=== PATIENT | female | born 1950 | race Caucasian/White ===

== ENCOUNTER 2021-04-24 07:03 | Day surgery (SDC) | payer MEDICARE, OTHER ==
[~2021-04-24 07:03] MED LIST: Acetaminophen 325 MG Tab PO SCH; Lactated Ringers 1,000 ML IV SCH; Lidocaine 1%/Sod Bicarbonate in NS 8.4% 1 ML Syringe IDERM PRN; Midazolam 1 MG/ML 2 ML SDV ONE; Pregabalin 25 MG Cap PO SCH; Propofol 200 MG/20 ML SDV ONE; Sodium Chloride 0.9% 10 ML Syringe FLUSH PRN; ceFAZolin 1 GM Vial ONE; fentaNYL 100 MCG/2 ML SDV ONE; oxyCODONE ER 10 MG TAB.ER PO SCH
[2021-04-24] MEDS ORDERED: Ropivacaine 0.5% 5 MG/ML 30 ML SDV ONE (07:10)
[2021-04-24] MEDS ORDERED: EPINEPHrine 1 MG/ML SDV ONE (07:10)
--- NOTE | 2021-04-24 07:18 | PCM.PREANE ---
Preanesthetic Assessment - Procedure Proposed Procedure: left total knee replacement - Anesthesia/Transfusion/Family Hx Anesthesia History: Prior Anesthesia Without Reaction Family History of Anesthesia Reaction: No Transfusion History: Prior Transfusion Without Reaction - Review of Systems General: No Symptoms Pulmonary: No Symptoms Cardiovascular: No Symptoms Gastrointestinal: No Symptoms Neurological: No Symptoms Other: Reports: Depression, Anxiety - Physical Assessment NPO Status Date: 04/23/21 NPO Status Time: 23:00 Vital Signs: 136/76 79 95% 97.6 16 Height: 5 ft 5 in Weight: 100 kg ASA Class: 2 Mental Status: Alert & Oriented x3 Airway Class: Mallampati = 2 Dentition: Reports: Normal Dentition, Galt(s) (caps) Thyro-Mental Finger Breadths: 3 Mouth Opening Finger Breadths: 3 ROM/Head Extension: Full Lungs: Clear to Auscultation, Normal Respiratory Effort Cardiovascular: Regular Rate, Regular Rhythm - Allergies Allergies/Adverse Reactions: Allergies Allergy/AdvReac Type Severity Reaction Status Date / Time kiwi Allergy Cannot Verified 04/21/21 10:41 Remember lisinopril AdvReac Cough Verified 04/21/21 10:50 - Blood Blood Available: No - Acknowledgements Anesthesia Type Planned: Spinal Pt an Appropriate Candidate for the Planned Anesthesia: Yes Alternatives and Risks of Anesthesia Discussed w Pt/Guardian: Yes Pt/Guardian Understands and Agrees with Anesthesia Plan: Yes PreAnesthesia Questionnaire HEENT History: Reports: Impaired Vision, Sinusitis Cardiovascular History: Reports: High Cholesterol, Hypertension Respiratory History: Reports: Other (See Below) Other Respiratory History: bronchitis, wheezing Gastrointestinal History: Reports: GERD Genitourinary History: Reports: None [employer]STRU[employer] DIRECTOR History: Reports: None Musculoskeletal History: Reports: Arthritis, Osteoporosis Neurological History: Reports: None Psychiatric History: Reports: Depression, Panic Attack Endocrine/Metabolic History: Reports: Obesity/BMI 30+ Hematologic History: Reports: None Immunologic History: Reports: None Oncologic (Cancer) History: Reports: None Dermatologic History: Reports: None - Past Surgical History Head Surgeries/Procedures: Reports: None HEENT Surgical History: Reports: Cataract Surgery Cardiovascular Surgical History: Reports: None Respiratory Surgical History: Reports: None GI Surgical History: Reports: Appendectomy, Cholecystectomy, Colonoscopy Female Surgical History: Reports: Hysterectomy, Tubal Ligation Male Surgical History: Reports: None Endocrine Surgical History: Reports: None Neurological Surgical History: Reports: None Musculoskeletal Surgical History: Reports: None Oncologic Surgical History: Reports: None Dermatological Surgical History: Reports: None - SUBSTANCE USE Tobacco Use Status *Q: Former Tobacco User (1987) Tobacco Use Within Last Twelve Months: No Second Hand Smoke Exposure: No Days Per Week of Alcohol Use: 0 Recreational Drug Use History: No - HOME MEDS Home Medications: Home Meds Alendronate Sodium [Fosamax] 70 mg PO Q7D 04/21/21 [History] Amoxicillin 2,000 mg PO ASDIRECTED PRN 04/21/21 [History] Calcium Carbonate [Tums] 300 - 600 mg PO DAILY 04/21/21 [History] Cholecalciferol (Vitamin D3) [Vitamin D3] 5,000 unit PO DAILY 04/21/21 [History] Fish Oil/[place]-3 Fatty Acids [Fish Oil 1,000 MG] 2 gm PO DAILY 04/21/21 [History] Fluticasone Propionate [Flonase] 1 dose NASBOTH DAILY 04/21/21 [History] Losartan [Cozaar] 50 mg PO DAILY 04/21/21 [History] Melatonin 3 mg PO DAILY PRN 04/21/21 [History] Omeprazole Magnesium [Prilosec Otc] 20 mg PO DAILY 04/21/21 [History] Sertraline [Zoloft] 50 mg PO QAM 04/21/21 [History] Simvastatin [Zocor] 10 mg PO BEDTIME 04/21/21 [History] guaiFENesin [Mucinex] 1,200 mg PO BID PRN 04/21/21 [History] Aspirin [Aspirin EC] 325 mg PO BID #60 tab 04/24/21 [Rx] oxyCODONE 5 - 10 mg PO Q4H PRN #40 tab 04/24/21 [Rx] - CURRENT (IN HOUSE) MEDS Current Meds: Current Medications Acetaminophen (Acetaminophen 325 Mg Tab) 975 mg PO ONETIME JEZ Stop: 04/24/21 16:00 Last Admin: 04/24/21 07:10 Dose: 975 mg Documented by: Morphine Sulfate 8 mg/Epinephrine HCl 0.3 mg/Cefuroxime Sodium 750 mg/Ketorolac Tromethamine 30 mg/Sodium Chloride 7.9 ml 0 mg .XX ASDIRECTED PRN PRN Reason: Pain Stop: 04/24/21 16:00 Lactated Ringer's (Ringers, Lactated) 1,000 mls @ 125 mls/hr IV ASDIRECTED JEZ Stop: 04/24/21 23:00 Lidocaine/Sodium Bicarbonate (Lidocaine 1%/Sod Bicarbonate In Ns 8.4% 1 Ml Syringe) 0.25 ml IDERM ONETIME PRN PRN Reason: Prior to IV Start Stop: 04/24/21 18:00 Oxycodone HCl (Oxycodone Er 10 Mg Tab.Er) 10 mg PO ONETIME JEZ Stop: 04/24/21 16:00 Last Admin: 04/24/21 07:10 Dose: 10 mg Documented by: Pregabalin (Pregabalin 25 Mg Cap) 50 mg PO ONETIME JEZ Stop: 04/24/21 16:00 Last Admin: 04/24/21 07:09 Dose: 50 mg Documented by: Sodium Chloride (Sodium Chloride 0.9% 10 Ml Syringe) 10 ml FLUSH ASDIRECTED PRN PRN Reason: Keep Vein Open Stop: 04/24/21 18:00 Discontinued Medications Cefazolin Sodium (Cefazolin 1 Gm Vial) Confirm Administered Dose 2 gm .ROUTE .STK-MED ONE Stop: 04/24/21 07:01 Fentanyl (Fentanyl 100 Mcg/2 Ml Sdv) Confirm Administered Dose 100 mcg .ROUTE .STK-MED ONE Stop: 04/24/21 07:01 Midazolam HCl (Midazolam 1 Mg/Ml 2 Ml Sdv) Confirm Administered Dose 2 mg .ROUTE .STK-MED ONE Stop: 04/24/21 07:01 Propofol (Propofol 200 Mg/20 Ml Sdv) Confirm Administered Dose 400 mg .ROUTE .STK-MED ONE Stop: 04/24/21 07:01
[2021-04-24] MEDS ORDERED: Lactated Ringers 1,000 ML ONE ×2 (08:28→09:45)
[2021-04-24] MEDS ORDERED: Ondansetron 4 MG/2 ML SDV IVPUSH PRN (08:45)
[2021-04-24] MEDS ORDERED: fentaNYL 100 MCG/2 ML SDV IVPUSH PRN (08:45)
[2021-04-24] MEDS ORDERED: HYDROmorphone 0.5 MG/0.5 ML Syringe IVPUSH PRN (08:45)
[2021-04-24] MEDS ORDERED: ePHEDrine 50 MG/ML SDV ONE (08:48)
[2021-04-24] MEDS: Morphine 8 MG, EPINEPHrine 0.3 MG, Cefuroxime 750 MG, Ketorolac 30 MG, Sodium Chloride ... PRN ×10 (09:29→09:47)
[2021-04-24] MEDS: Vancomycin 1 GM SDV ONE ×2 (09:30→09:53)
--- NOTE | 2021-04-24 10:22 | PCM.POSTAN ---
POST ANESTHESIA ASSESSMENT - MENTAL STATUS Mental Status: Alert, Oriented - VITAL SIGNS Vital Signs: Last Vital Signs Temp 97.9 F 04/24/21 10:14 Pulse 80 04/24/21 10:14 Resp 14 04/24/21 10:14 BP 116/68 04/24/21 10:14 Pulse Ox 94 L 04/24/21 10:14 - RESPIRATORY Respiratory Status: Respiratory Rate WNL, Airway Patent, O2 Saturation Stable, Supplemental Oxygen - CARDIOVASCULAR CV Status: Pulse Rate WNL, Blood Pressure Stable - GASTROINTESTINAL GI Status: No Symptoms - PAIN Pain Score: 0 - POST OP HYDRATION Hydration Status: Adequate & Stable
--- NOTE | 2021-04-24 10:54 | PCM.SN.2 ---
- Free Text/Narrative Note: Left selective femoral nerve block at the adductor canal for post-procedure pain control under US guidance requested by Dr. Kebede. Date: 04/24/21 Time Out: 1032 Start: 1033 End: 1043 Chart reviewed. Consent signed. Questions answered. Appropriate monitors applied. Time out performed. Left mid-shaft femur identified with ultrasound, scanning medially of femur, the femoral artery in the adductor canal visualized, and the femoral nerve located laterally to the artery. The skin was prepped lateral to the ultrasound probe with chlorahexadine times two. The 21ga 4 insulated block needle was inserted under direct ultrasound guidance into the adductor canal. 25mL of 0.5% ropivacaine with 1:200,000 epinephrine was injected circumferentially around the nerve with intermittent negative aspiration noted. Patient tolerated the procedure well. Sterile technique noted along with sterile gloves, mask, and sterile probe cover. See picture on progress note and vital signs on nurses notes. Block completed in PACU. Cande Gates CRNA
[2021-04-24] MEDS ORDERED: oxyCODONE 5 MG Tab PO PRN (10:57)
--- NOTE | 2021-04-24 11:36 | CR ---
Left knee: AP and lateral views of the left knee were obtained. Comparison: Prior left knee CT study 04/04/21. Knee prosthesis is noted. Components are aligned. Patellar prosthesis is also seen. Underlying bony structure shows nothing acute. Soft tissue air is seen. Impression: 1. Satisfactory postop radiographic appearance of recently placed left knee prostheses. Diagnostic code #2
--- NOTE | 2021-04-24 13:26 | PCM48HPAN ---
Post Anesthesia Note - EVALUATION WITHIN 48HRS OF ANESTHETIC Vital Signs in Normal Range: Yes Patient Participated in Evaluation: Yes Respiratory Function Stable: Yes Airway Patent: Yes Cardiovascular Function Stable: Yes Hydration Status Stable: Yes Pain Control Satisfactory: Yes Nausea and Vomiting Control Satisfactory: Yes Mental Status Recovered: Yes Vital Signs: Last Vital Signs Temp 97.9 F 04/24/21 11:24 Pulse 77 04/24/21 13:05 Resp 16 04/24/21 13:05 BP 137/86 04/24/21 13:05 Pulse Ox 94 L 04/24/21 13:05 - COMMENTS/OBSERVATIONS Free Text/Narrative:: was up walking. got a little dizzy. After in bed a few minutes feels good. Minimal knee discomfort.
--- NOTE | 2021-05-10 06:38 | PCM.OPNOTE ---
- General Post-Op/Procedure Note Date of Surgery/Procedure: 04/24/21 Operative Procedure(s): left total knee arthroplasty with eric robotic assist Pre Op Diagnosis: left knee osteoarthrosis Post-Op Diagnosis: Same Anesthesia Technique: Local, MAC, Spinal Primary Surgeon: Cruz Kebede Anesthesia Provider: Cande Gates Retail Team Member: Tiffanie So Retail Team Member: Indira Montes EBRikki in mLs: 5 Complications: None Condition: Good Free Text/Narrative:: 5 4 9mm 32x10 cemented
--- NOTE | 2021-05-10 07:12 | OR ---
DATE OF OPERATION: 04/24/2021 SURGEON: Cruz Kebede MD OPERATION PERFORMED: Left total knee arthroplasty with Konrad robotic assist. PREOPERATIVE DIAGNOSIS: Left knee osteoarthrosis. POSTOPERATIVE DIAGNOSIS: Left knee osteoarthrosis. ANESTHESIA: Local MAC with spinal. ANESTHESIA PROVIDER: Cande Gates CRNA BLADE CHANGER: Tiffanie So PA-C; and Indira Montes LPN. ESTIMATED BLOOD LOSS: 5 mL. COMPLICATIONS: None. CONDITION: Stable. IMPLANTS: 1. Karol size 5 cemented PS femur. 2. Karol size 4 universal tibial baseplate. 3. Karol size 4 9 mm PS X3 polyethylene. 4. [place] size 32 x 10 mm cemented asymmetric patella. DESCRIPTION OF PROCEDURE: The patient was identified in the preop holding area. Proper site was marked and identified by the surgeon. The patient was taken back to the operating theater where after adequate anesthesia, the patient's left lower extremity had a nonsterile tourniquet applied and it was sterilely prepped and draped in the usual sterile fashion. OR time-out was performed. The patient received 2 g IV Ancef. Leg mackey was then applied to the left lower extremity. At this time, the left lower extremity was exsanguinated. Tourniquet was insufflated to 250 mmHg . Standard anterior incision was made. Medial parapatellar arthrotomy was created. Deep fibers of the MCL were raised as well as anterior fat pad was resected. Attention was turned to the patella. Patella measured 23 mm; it was resected to a 13 mm for a 32 x 10 mm patella. Drill holes were then drilled. Attention was then turned to the femur. Two 4.0 pins were placed intra- incisionally for the Karol Konrad robotic array and then 2 more were placed on the tibia 3 fingerbreadths below the tibial tubercle. The Karol Konrad robotic arrays were placed on both the femur and the tibia then at this time as well as checkpoints on the femur and tibia. Hip center rotation was then obtained. The medial and lateral malleoli were marked. At this time, 40 points were obtained off the femur and the tibia for the Karol Konrad robotic plan. The patient's knee was brought to full extension. Varus and valgus stresses were applied and then into 90 degrees of flexion with a curved osteotome. Varus and valgus stresses were applied. At this time, [place] robotic plan was done to 20 mm gaps in both flexion and extension. Karol Konrad robotic arm was then brought in. A straight saw blade was then used for the tibial cut, the anterior femoral cut, the anterior chamfer cut, and the posterior femoral cut. All bony fragments were removed. Saw blade was then switched out and the distal femoral cut as well as the posterior chamfer cut was completed. At this time, medial and lateral menisci were resected as well as any posterior osteophytes. A 4 mm trial tibia was then placed, 5 mm trial femur was placed, and a size 4 9 mm PS X3 polyethylene trial liner was placed. The patient's knee was brought to full extension and flexion. Varus and valgus stresses were applied, was found to be stable with no instability. No signs of liftoff or loosening were noted. At this time, box cut was completed on the femur. The pins were removed from the femur and the tibia as well as the arrays and the checkpoints. Cement was mixed on the back table. All cut surfaces were irrigated with pulse lavage irrigation with Ancef and then completely dried. Once the cement was ready, the [place] size 4 mm cemented [place] tibial base plate having been previously stamped and drilled, was then cemented in place on the tibia. The Karol size 5 mm cemented femur was cemented into place. The patient had a [place] size 4 9 mm PS X3 polyethylene insert placed. The patient's knee was brought to full extension. Excess cement was removed. A [place] size 32 x 10 mm cemented asymmetric patella was then cemented into place. 1 L of pulse lavage irrigation with Ancef was irrigated through the knee along with 400 mL of IrriSept irrigation. Periarticular injection was completed. Topical tranexamic acid and vancomycin powder were applied. A #2 barbed suture was used for closure of the medial parapatellar arthrotomy in flexion. 2-0 Vicryl and Stratafix were used for subcutaneous closure. Prineo was used for cutaneous closure. The patient had a sterile soft dressing applied. The tibial holes were closed with nylon, and this was also covered with a sterile soft dressing. The patient had an BAO wrap applied and was sent to PACU in stable condition. The patient tolerated the procedure well. MMODAL /[id number]
== END 2021-04-24 14:31 | disposition home or self-care (01) ==
LOC: JD.SDS 07:03
PROVIDERS: ATTEND Orthopaedic Surgery
DX: M17.12 Unilateral primary osteoarthritis, left knee (principal); I10 Essential (primary) hypertension; J45.909 Unspecified asthma, uncomplicated; E78.5 Hyperlipidemia, unspecified; E66.9 Obesity, unspecified; M81.0 Age-related osteoporosis without current pathological fracture; Z88.8 Allergy status to other drugs, medicaments and biological substances; Z79.899 Other long term (current) drug therapy; Z79.82 Long term (current) use of aspirin; Z87.891 Personal history of nicotine dependence; Z91.018 Allergy to other foods; Z90.49 Acquired absence of other specified parts of digestive tract; Z98.890 Other specified postprocedural states; Z68.36 Body mass index [BMI] 36.0-36.9, adult; G89.18 Other acute postprocedural pain
CPT/HCPCS: 27447; 73560; 97116; 97161; 97165; 97535; A9270; C1713; C1776; J0171; J0690; J0697; J1885; J2250; J2270; J2405; J2704; J2795; J3010; J3370; J7120; 01402; 64450; 76942; 99100